=== PATIENT | female | born 1970 | race Two or more races ===

== ENCOUNTER 2016-12-01 23:00 | Inpatient (IN) | payer OTHER ==
--- NOTE | ~2016-12-01 | PA ---
Unit #: [id number] #: [id number] Patient: RACQUEL BRODERICK [id number] [facility] [address] [place] [address] [id number] MR#: [id number] NAME: RACQUEL BRODERICK. ROOM: P132 Age: 46 Sex: F Admission Date: 12/02/2016 : 1970 Date of Assessment: 12/02/2016 Attending Physician: Natanael Champagne M.D. Admitting Physician: Natanael Champagne M.D. Primary Care Physician: Primary Care Physician No PSYCHIATRIC ASSESSMENT DATE OF SERVICE 12/02/2016. IDENTIFYING DATA Ms. Broderick is a 46-year-old Syriac Luxembourger female, who is very well known to me from previous multiple encounters and is a resident of [place], [place] and was self-referred to the hospital on a voluntary basis. CHIEF COMPLAINT "My son was killed by Bess and that is all I can think about." HISTORY OF PRESENT ILLNESS Ms. Broderick is a 46-year-old Syriac Luxembourger female, who was brought to the hospital and reports increasing depression and grieving the loss of her son, who was killed by a bess accident and reports that she has been having decreased functioning since the of her son and has no desire to live and reports suicidal ideation and plan to hang herself or overdose on medications, stated that she has no support from family members. Reports hearing voices relates to inability to sleep. She was seen to be danger to self and others and as such, recommendation for inpatient level of care for safety and stabilization was made. SUBSTANCE ABUSE HISTORY The patient has long history of alcohol dependence and reports that she is only drinking 1 to 2 drinks a week, though she has strong history of denial and minimizing her alcohol consumption. PAST PSYCHIATRIC HISTORY The patient has a history of multiple inpatient psychiatric hospitalizations at [facility] and review of the medical records indicate that currently she is not active in any treatment program, and is not seeing a psychiatrist, and is not taking any psychotropic medications. PAST MEDICAL HISTORY The patient's medical history is insignificant. ALLERGIES Sulfa drugs. PERSONAL AND SOCIAL HISTORY A 46-year-old Syriac Luxembourger female, who reports that she lives at home with her daughter and son-in-law and has poor social support system. Unit #: [id number] #: [id number] Patient: RACQUEL BRODERICK MENTAL STATUS EXAMINATION Middle-aged Syriac Luxembourger female who was casually dressed with fair personal hygiene, appears to be in no acute distress or discomfort. She was awake and alert on interaction with intact orientation to time, place, and person. Her mood was anxious and depressed with a congruent affect. Her speech was slow and restricted in content. Her thought processes were disorganized with some looseness of associations and suicidal ideations. Her insight and judgment remain significantly impaired. DIAGNOSTIC IMPRESSION Psychiatric: Major depressive disorder, recurrent, moderate, without psychotic features; alcohol dependence, moderate. Medical: None. Stressors: Moderate psychosocial stressors. TREATMENT PLAN 1. The patient has presented with history of mood disorder and substance abuse and has been decompensating and will need inpatient hospitalization for safety and stabilization. We will start her back on her home medications and we will adjust the medications and monitor response. 2. Supportive therapy was provided to the patient. 3. Safe, structured, and nourishing environment will be provided. ESTIMATED LENGTH OF STAY 5 to 7 days. ABILITY TO HELP SELF Limited. WILLINGNESS TO HELP SELF The patient appears to be willing to help self. STRENGTHS 1. Communicative. 2. Cooperative. PROBLEMS 1. Chronic dysphoric symptoms. 2. Poor social support system. DISCHARGE CRITERIA This will be contingent upon the patient's ability to show resolution of her depression and her ability to stay safe to herself, particularly after discharge from the hospital. Dictated by... Natanael Champagne M.D. DENNY/kerline TD: 12/02/2016 07:05 JOB #: [id number] Unit #: [id number] #: [id number] Patient: RACQUEL BRODERICK PSYCHIATRIC ASSESSMENT Page 1 of 1 X Natanael Champagne MD PSYCHIATRIC ASSESSMENT
--- NOTE | ~2016-12-01 | PN ---
Unit #: [id number] #: [id number] Patient: RACQUEL BRODERICK [id number] [facility] [address] [place] [address] [id number] MR#: [id number] NAME: RACQUEL BRODERICK. ROOM: P132 Age: 46 Sex: F Admission Date: 12/02/2016 : 1970 Attending Physician: Natanael Champagne M.D. Admitting Physician: Natanael Champagne M.D. Primary Care Physician: Primary Care Physician Fatou FORD PROGRESS NOTES DATE 12/04/2016 DISCUSSION Ms. Broderick is a 46-year-old Hong Konger female who was seen today and chart was reviewed and case was discussed with the staff. She has been anxious, withdrawn and rather seclusive to herself. Meanwhile, she has been cooperative with treatment recommendations and has been taking medications and tolerating them fairly well with no reported side effects. MENTAL STATUS EXAMINATION Middle-aged Hong Konger female who was casually dressed with fair personal hygiene and appears to be in no acute distress or discomfort. She was awake and alert with impaired attention and concentration. Her mood was anxious and depressed with congruent affect. Her speech is slow and restricted in content. She reports having suicidal ideations and denies any homicidal ideation and also denies any auditory or visual hallucinations. Her insight and judgement remain slightly impaired. TREATMENT PLAN 1. Will continue on current medications and treatment protocol. Will monitor her response to the medications and make further adjustments as needed. 2. Will continue to follow up. Dictated by... Johnathon Patel/keyon TD: 12/05/2016 22:56 JOB #: [id number] Unit #: [id number] #: [id number] Patient: RACQUEL BRODERICK [facility] PROGRESS NOTES Page 1 of 1 X Natanael Champagne MD PROGRESS NOTE
--- NOTE | ~2016-12-01 | PN ---
Unit #: [id number] #: [id number] Patient: RACQUEL BRODERICK [id number] [facility] [address] [place] [address] [id number] MR#: [id number] NAME: RACQUEL BRODERICK. ROOM: P132 Age: 46 Sex: F Admission Date: 12/02/2016 : 1970 Attending Physician: Natanael Champagne M.D. Admitting Physician: Natanael Champagne M.D. Primary Care Physician: Primary Care Physician Fatou FORD PROGRESS NOTES DATE OF SERVICE: 12/06/2016 SUBJECTIVE Ms. Broderick is a 46-year-old Latvian female who was seen today and chart was reviewed, and case was discussed with the staff. She has been doing better than yesterday and has been smiling appropriately and appears to be getting improvement. Meanwhile, she has been taking medications and tolerating them fairly well with no reported side effects. MENTAL STATUS EXAMINATION Middle-aged Latvian female, who was casually dressed with fair personal hygiene, appears to be in no acute distress or discomfort. She was awake and alert on interaction with intact orientation. Her mood was anxious and depressed with a congruent affect. She denies any current suicidal or homicidal ideations and also denies any auditory or visual hallucinations. Her insight and judgment remain slightly impaired. TREATMENT PLAN 1. We will continue her on her current medications and treatment protocol. We will monitor her response to the medications and make further adjustments as needed. 2. We will continue to follow up. Dictated by... Johnathon Patel/kerline TD: 12/07/2016 05:30 JOB #: [id number] Unit #: [id number] #: [id number] Patient: RACQUEL BRODERICK [facility] PROGRESS NOTES Page 1 of 1 X Natanael Champagne MD PROGRESS NOTE
--- NOTE | ~2016-12-01 | PN ---
Unit #: [id number] #: [id number] Patient: RACQUEL BRODERICK [id number] [facility] [address] [place] [address] [id number] I MR#: [id number] NAME: RACQUEL BRODERICK. ROOM: P132 Age: 46 Sex: F Admission Date: 12/02/2016 : 1970 Attending Physician: Natanael Champagne M.D. Admitting Physician: Natanael Champagne M.D. Primary Care Physician: Primary Care Physician Fatou FORD PROGRESS NOTES DATE 12/08/2016 DISCUSSION Ms. Broderick is a 46-year-old Anguillan female who was seen today and chart was reviewed and case was discussed with the staff. She has been anxious, withdrawn and rather seclusive to herself. Meanwhile, she has been cooperative with treatment recommendations as she has been cooperative with treatment recommendations. She has been taking medications and tolerating them fairly well with no reported side effects. MENTAL STATUS EXAMINATION Middle-aged female who was casually dressed with fair personal hygiene, appears to be in no acute distress or discomfort. She was awake and alert on interaction with intact orientation. Her mood was anxious with congruent affect. She denies any suicidal or homicidal ideations. Also, denies any auditory or visual hallucinations. Her insight and judgement remains slightly impaired. TREATMENT PLAN 1. We will continue her on her current medications and treatment protocol. We will monitor her response and make further adjustments as needed. 2. We will continue to follow up. Dictated by... Johnathon Patel/abdi TD: 12/08/2016 23:24 JOB #: [id number] Unit #: [id number] #: [id number] Patient: RACQUEL BRODERICK PEAJOMAR PROGRESS NOTES Page 1 of 1 X Natanael Champagne MD PROGRESS NOTE
--- NOTE | ~2016-12-01 | HP ---
Unit #: [id number] #: [id number] Patient: ANY DAWN [id number] [place] [address] [id number] I MR#: [id number] NAME: ANY DAWN. ROOM: P132 Age: 46 Sex: F Admission Date: 12/02/2016 : 1970 Attending Physician: Natanael Champagne M.D. Admitting Physician: Natanael Champagne M.D. Primary Care Physician: Primary Care Physician No HISTORY AND PHYSICAL HISTORY OF PRESENT ILLNESS Any is a 46 year old admitted to [address] [place] [address] with depression and alcohol abuse. She has had other admissions to this facility. Her Scottish is very good. PAST MEDICAL HISTORY 1. Long history of alcohol abuse. 2. History of withdrawal seizures. 3. Obesity. PAST SURGICAL HISTORY Nothing reported. ALLERGIES Sulfa SOCIAL HISTORY She does not smoke. Drinks alcohol on a daily basis. Denies illicit drug use. FAMILY HISTORY Medically noncontributory. REVIEW OF SYSTEMS She does not answer all questions appropriately. There no reports of nausea, vomiting or diarrhea. She has had no cough or increased temperature. CURRENT MEDICATIONS 1. Celexa 20 mg q day 2. Desyrel p.r.n. 3. Milk of Magnesia p.r.n. 4. Maalox p.r.n. 5. Tylenol p.r.n. 6. Phenergan p.r.n. PHYSICAL EXAMINATION GENERAL: Alert, obese, in no apparent distress. VITAL SIGNS: Blood pressure 120/70, heart rate 80, respirations 16, temperature 98.6. WEIGHT: 178 pounds. HEIGHT: 5'1". Unit #: [id number] #: [id number] Patient: ANY DAWN SKIN: Warm and dry without rash or lesion. HEENT: Normocephalic. TMs not viewed. Oral and nasal passages clear. Conjunctivae clear. Pupils equal, round and reactive to light and accommodation. Extraocular movements intact. NECK: Supple without lymphadenopathy or thyromegaly. HEART: Regular rate and rhythm without murmur. LUNGS: Clear. ABDOMEN: Soft, nontender. : Not done. EXTREMITIES: No evidence of cyanosis, clubbing or edema. Moves all extremities without focal deficit. NEUROLOGICAL: Unable to complete extended exam. She does move all extremities without focal deficit. Hand candle molder is equal and gait is normal. IMPRESSION Psychiatric admission RECOMMENDATIONS PSYCHIATRIC: Per psychiatrist. MEDICAL: I see no contraindications to participating in facility's activities. MEDICAL PROGNOSIS Good. MEDICAL CONDITION Stable. Dictated by... Parul Palomino P.A.-C. for Johnathon Gamble/abdi TD: 12/03/2016 02:28 JOB #: [id number] HISTORY AND PHYSICAL Page 1 of 1 X Parul Palomino X HISTORY AND PHYSICAL
--- NOTE | ~2016-12-01 | PN ---
Unit #: [id number] #: [id number] Patient: RACQUEL DAWN [id number] [facility] [address] [place] [address] [id number] I MR#: [id number] NAME: RACQUEL DAWN. ROOM: P132 Age: 46 Sex: F Admission Date: 12/02/2016 : 1970 Attending Physician: Natanael Champagne M.D. Admitting Physician: Natanael Champagne M.D. Primary Care Physician: Primary Care Physician Fatou HAWKINS NOTES DATE OF SERVICE 12/07/2016 DISCUSSION Ms. Dawn is a 46-year-old Niuean female who was seen today. Chart was reviewed and case was discussed with the staff. She has been doing fairly well and has been showing improvement in his depression and anxiety as she has been cooperative with treatment recommendations and has been taking the medications and tolerating them fairly well with no reported side effects. MENTAL STATUS EXAMINATION Middle-aged female who is casually dressed with fair personal hygiene, appears to be in no acute distress or discomfort. She was awake and alert with impaired attention and concentration. Her mood is anxious and depressed with congruent affect. She denies any suicidal or homicidal ideations. Her insight and judgment remain slightly impaired. TREATMENT PLAN 1. We will continue her on her current medications and treatment protocol. We will monitor her response to the medications and make further adjustments as needed. 2. We will continue to follow up. Dictated by... Natanael Champagne M.D. IAA/bzg TD: 12/08/2016 09:37 JOB #: [id number] Unit #: [id number] #: [id number] Patient: RACQUEL DAWN PEAJOMAR PROGRESS NOTES Page 1 of 1 X Natanael Champagne MD X PROGRESS NOTE
--- NOTE | ~2016-12-01 | PN ---
Unit #: [id number] #: [id number] Patient: RACQUEL BRODERICK [id number] [facility] [address] [place] [address] [id number] I MR#: [id number] NAME: RACQUEL BRODERICK ROOM: P132 Age: 46 Sex: F Admission Date: 12/02/2016 : 1970 Attending Physician: Natanael Champagne M.D. Admitting Physician: Natanael Champagne M.D. Primary Care Physician: Primary Care Physician Fatou HAWKINS NOTES DATE OF SERVICE: 12/05/2016 SUBJECTIVE Ms. Broderick is a 46-year-old Bangladeshi female who was seen today and chart was reviewed, and case was discussed with the staff. She has been anxious, withdrawn, and was communicated with the help of an per diem interpreter and the patient reports still having persistent depression, anxiety, and auditory hallucination, hearing voices, telling her to , although she has been taking medications, she has not . MENTAL STATUS EXAMINATION Middle-aged female who was casually dressed with fair personal hygiene, appears to be in no acute distress or discomfort. She was awake and alert with impaired attention and concentration. Her mood was anxious with a congruent affect. She denies any suicidal or homicidal ideations. She denies any auditory or visual hallucinations. Her insight and judgment remain significantly impaired. TREATMENT PLAN We will continue on current medications and treatment protocol. We will monitor her response to medications. . Dictated by... Johnathon Patel/kerline TD: 12/06/2016 21:41 JOB #: [id number] [facility] PROGRESS NOTES Page 1 of 1 X Natanael Champagne MD PROGRESS NOTE
--- NOTE | ~2016-12-01 | PN ---
Unit #: [id number] #: [id number] Patient: RACQUEL BRODERICK [id number] [facility] [address] [place] [address] [id number] MR#: [id number] NAME: RACQUEL BRODERICK. ROOM: P132 Age: 46 Sex: F Admission Date: 12/03/2016 : 1970 Attending Physician: Natanael Champagne M.D. Admitting Physician: Natanael Champagne M.D. Primary Care Physician: Primary Care Physician Fatou FORD PROGRESS NOTES DATE 12/03/2016 DISCUSSION Ms. Broderick is a 46-year-old Upper Sorbian Greek female who was seen today and chart was reviewed and case was discussed with the staff. She has been anxious, withdrawn though has not shown any agitation or aggression and has been cooperative with treatment recommendations as she has been taking the medications and tolerating them fairly well with no reported side effects. MENTAL STATUS EXAMINATION Middle-aged Upper Sorbian Greek female who was casually dressed with fair personal hygiene, appears to be in no acute distress or discomfort. She was awake and alert on interaction with impaired attention and concentration. Her mood was anxious and depressed with congruent affect. She denies any suicidal or homicidal ideations. Her insight and judgement remains slightly impaired. TREATMENT PLAN 1. We will continue her on her current medications and treatment protocol. We will monitor her response and make further adjustments as needed. 2. We will continue to follow up. Dictated by... Johnathon Patel/abdi TD: 12/04/2016 02:22 JOB #: [id number] Unit #: [id number] #: [id number] Patient: RACQUEL BRODERICK [facility] PROGRESS NOTES Page 1 of 1 X Natanael Champagne MD X PROGRESS NOTE
--- NOTE | ~2016-12-01 | DS ---
Unit #: [id number] #: [id number] Patient: RACQUEL DAWN [id number] [facility] [address] [place] [address] [id number] I MR#: [id number] NAME: RACQUEL DAWN. ROOM: P132 Age: 46 Sex: F Admission Date: 12/02/2016 : 1970 Discharge Date: Attending Physician: Natanael Champagne M.D. DISCHARGE SUMMARY IDENTIFYING DATA Ms. Dawn is a 46-year-old Maltese Cameroonian female, who is very well known to us from previous multiple encounters and is a resident of [place], [place], and was self-referred to the hospital on a voluntary basis. DISCHARGE DIAGNOSES Psychiatric: Major depressive disorder, recurrent, moderate, without psychotic features; alcohol dependence, moderate. Medical: None. Stressors: Moderate psychosocial stressors. HISTORY OF PRESENT ILLNESS Please see initial psychiatric evaluation for details. PAST PSYCHIATRIC HISTORY Please see initial psychiatric evaluation for details. PAST MEDICAL HISTORY Please see initial psychiatric evaluation for details. HOSPITAL COURSE The [facility] and was oriented to the hospital environment. Routine p.r.n. medications were initiated, and she was started back on her home medications. Celexa as an antidepressant was initiated and she was closely monitored. She was taking the medications regularly and was tolerating them fairly well and was able to show a decent and therapeutic response with improvement in depression and anxiety and as such, it was decided that she will be discharged home and will continue treatment on an outpatient basis. DISCHARGE MEDICATIONS Celexa 20 mg a day for depression. DISCHARGE CONDITION Stable. PROGNOSIS Fair. Dictated by... Natanael Champagne M.D. Unit #: [id number] #: [id number] Patient: RACQUEL DAWN IAA/modl TD: 12/09/2016 07:01 JOB #: [id number] DISCHARGE SUMMARY Page 1 of 1 X Natanael Champagne MD X DISCHARGE SUMMARY
[~2016-12-01 23:00] MED LIST: NO MEDICATIONS; PHENERGAN25 M1 PO; PROTONIX PO
[2016-12-02 12:40] LABS: BASOPHIL# 0.1 X10e3 (0-0.3); BASOPHIL% 1.2 % (0-2.5); EOSINOPHIL# 0.1 X10e3 (0-0.7); EOSINOPHIL% 1.9 % (0.0-7.0); HEMATOCRIT 40.6 % (35.0-45.0); HEMOGLOBIN 13.7 gm/dL (12.0-16.0); LYMPHOCYTE# 2.3 X10e3 (1.0-3.5); LYMPHOCYTE% 39.2 % (17.0-45.0); MEAN CELL VOLUME 85.9 FL (83-96); MEAN CORPUSCULAR HGB CONC 33.7 g/dL (30-36); MONOCYTE# 0.4 X10e3 (0-1.0); MONOCYTE% 6.4 % (3.0-12.0); NEUTROPHIL% 51.3 % (40-75); PLATELET COUNT 291 X10e3 (140-420); RED BLOOD COUNT 4.72 X10e (3.90-5.30); RED CELL DISTRIBUTION WIDTH 13.7 % (11.0-15.5); WHITE BLOOD COUNT 5.8 X10e3 (4.0-10.5)
[2016-12-02 12:50] LABS: DIFF IND NO
[2016-12-02 12:53] LABS: ALBUMIN SERUM 3.8 g/dL (3.5-5.0); BILIRUBIN,TOTAL 0.6 mg/dL (0.2-2.0); BUN/CREATININE RATIO 14.28; CALCIUM SERUM 8.7 mg/dL (8.4-10.2); CREATININE SERUM 0.7 mg/dL (0.6-1.4); GLOM FILT RATE Estimated 105.4 mL/min (>60); POTASSIUM 3.9 mmol/L (3.5-5.1); PROTEIN TOTAL SERUM 6.5 g/dL (6.0-8.3)
== END 2016-12-09 13:00 | disposition home or self-care (01) | DRG 885 ==
LOC: P1S 12-02 02:50
PROVIDERS: Psychiatry & Neurology Psychiatry
DX: F33.1 Major depressive disorder, recurrent, moderate (principal); R45.851 Suicidal ideations; F10.20 Alcohol dependence, uncomplicated; Z88.2 Allergy status to sulfonamides; E66.9 Obesity, unspecified; Z68.33 Body mass index [BMI] 33.0-33.9, adult
CPT/HCPCS: 80053; 85025